=== PATIENT | female | born 2000 | race Caucasian/White ===

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

== ENCOUNTER → 2021-04-09 14:00 | Observation (INO) | END | disposition home or self-care (01) | LOC: 1NENULAB | PROVIDERS: ADMIT Obstetrics & Gynecology; ATTEND Obstetrics & Gynecology ==

== ENCOUNTER 2021-04-22 05:11 | Inpatient (IN) ==
[2021-04-22] MEDS ORDERED: Metoclopramide 10 MG/2 ML VIAL IVP PRN ×2 (05:16→11:49)
[2021-04-22] MEDS ORDERED: Famotidine 20 MG/2 ML VIAL IVP PRN (05:16)
[2021-04-22] MEDS ORDERED: Naloxone 0.4 MG/ML INJ IVP PRN ×2 (05:16→08:38)
[2021-04-22] MEDS ORDERED: ceFAZolin 2,000 MG in 0.9 % Sodium Chloride 100 ML IVPB ONE (05:18)
[2021-04-22] MEDS ORDERED: Ringers Solution, Lactated 1,000 ML IVC SCH (05:30)
[2021-04-22 05:43] LABS: Basophils % 0.3 %; Eosinophils # 0.1 K/mcL (0.0-0.6); Eosinophils % 1.7 %; Hematocrit 30.4 % (35.3-44.9); Hemoglobin 9.6 g/dL (11.5-15.4); Immature Granulocytes % 0.4 % (0-4); Lymphocytes # 2.2 K/mcL (0.6-4.6); Lymphocytes % 32.3 %; Mean Corpuscular HGB Conc 31.6 g/dL (31.6-35.5); Mean Corpuscular Hemoglobin 23.9 pg (28.0-33.3); Mean Corpuscular Volume 75.6 fL (83.0-100.0); Mean Platelet Volume 9.9 fL (9.4-12.4); Monocytes # 0.4 K/mcL (0.0-1.3); Monocytes % 5.2 %; Neutrophils # 4.2 K/mcL (1.6-8.9); Platelet Count 291 K/mcL (140-400); Red Blood Count 4.02 M/mcL (3.82-4.97); Red Cell Distribution Width 14.6 % (11.5-14.5); Segmented Neutrophils % 60.1 %; White Blood Count 6.9 K/mcL (4.3-11.1)
[2021-04-22 05:44] LABS: Amphetamine Screen,Urine Negative ng/mL (Cutoff=1000); Barbiturate Screen,Urine Negative ng/mL (Cutoff=200); Benzodiazepines Screen,Urine Negative ng/mL (Cutoff=200); Cannabinoid Screen,Urine Negative ng/mL (Cutoff = 50); Cocaine Screen,Urine Negative ng/mL (Cutoff= 300); Opiate Screen,Urine Negative ng/mL (Cutoff=300); Phencyclidine Screen,Urine Negative ng/mL (Cutoff=25)
[2021-04-22 06:12] LABS: Influenza A PCR Negative (Negative); Influenza B PCR Negative (Negative); Resp. Syncytial Virus PCR Negative (Negative); SARS-CoV-2 by PCR (In House) Negative (Negative)
[2021-04-22] MEDS ORDERED: CeFAZolin 2,000 MG/120 ML BAG IVPB ONE ×2 (08:00→08:15)
[2021-04-22] MEDS ORDERED: *HR* FentaNYL (PF) 100 MCG/2 ML VIAL ONE (08:02)
[2021-04-22] MEDS ORDERED: *HR* Morphine Sulfate/PF 10 MG/10 ML AMPUL ONE (08:02)
[2021-04-22] MEDS ORDERED: Ondansetron 4 MG/2 ML VIAL ONE (08:04)
[2021-04-22] MEDS ORDERED: *HR* Phenylephrine 10 MG/ML VIAL ONE (08:28)
[2021-04-22] MEDS ORDERED: *HR* FentaNYL (PF) 100 MCG/2 ML VIAL IVP PRN (08:38)
[2021-04-22] MEDS ORDERED: Ondansetron 4 MG/2 ML VIAL IVP PRN ×2 (08:38→11:49)
[2021-04-22] MEDS ORDERED: Promethazine 6.25 MG in Water for inj. (sterile) 20 ML IVPB PRN (08:38)
[2021-04-22] MEDS ORDERED: Acetaminophen IV 1,000 MG/100 ML BAG IVPB ONE (08:49)
[2021-04-22] MEDS ORDERED: Ketorolac 30 MG/ML VIAL ONE (09:15)
[2021-04-22] MEDS ORDERED: Oxytocin 20 units/ LR 1000 mL 20 UNIT/1,000 ML BAG IVC SCH (11:49)
[2021-04-22] MEDS: Simethicone 80 MG TAB.CHEW PO SCH ×2 (14:48→19:43)
[2021-04-22] MEDS: Acetaminophen 325 MG TABLET PO SCH (14:48)
[2021-04-22] MEDS ORDERED: Ketorolac 30 MG/ML VIAL IVP ONE (15:15)
[2021-04-22] MEDS: Ibuprofen 600 MG TABLET PO SCH (19:43)
[2021-04-23 03:19] LABS: Basophils % 0.4 %; Eosinophils # 0.2 K/mcL (0.0-0.6); Eosinophils % 1.8 %; Hematocrit 29.3 % (35.3-44.9); Hemoglobin 9.3 g/dL (11.5-15.4); Immature Granulocytes % 0.4 % (0-4); Lymphocytes # 2.1 K/mcL (0.6-4.6); Mean Corpuscular HGB Conc 31.7 g/dL (31.6-35.5); Mean Corpuscular Volume 75.7 fL (83.0-100.0); Monocytes # 0.6 K/mcL (0.0-1.3); Monocytes % 5.8 %; Neutrophils # 6.6 K/mcL (1.6-8.9); Platelet Count 267 K/mcL (140-400); Red Blood Count 3.87 M/mcL (3.82-4.97); Red Cell Distribution Width 14.7 % (11.5-14.5); Segmented Neutrophils % 69.6 %; White Blood Count 9.5 K/mcL (4.3-11.1)
[2021-04-23] MEDS: Ibuprofen 600 MG TABLET PO SCH ×2 (03:47→11:49)
[2021-04-23 04:00] VITALS: O2SAT 97
[2021-04-23 08:00] VITALS: BP 106/59; PULSE 60; TEMP 97.7
[2021-04-23] MEDS: Acetaminophen 325 MG TABLET PO SCH ×2 (08:21)
[2021-04-23] MEDS: Simethicone 80 MG TAB.CHEW PO SCH (08:21)
[2021-04-23] MEDS ORDERED: Prenatal Vit/FA 1 EACH TABLET PO SCH (09:00)
== END 2021-04-23 17:29 | disposition home or self-care (01) | DRG 540 ==
LOC: 1NENULAB 05:11 → EDSTATUS 07:30 → 1NENUOBS 11:40
PROVIDERS: ADMIT Obstetrics & Gynecology; ATTEND Obstetrics & Gynecology